=== PATIENT | male | born 1970 | race Caucasian/White ===

== ENCOUNTER 2018-03-14 22:28 | Emergency (ER) | payer OTHER ==
[2018-03-14] MEDS ORDERED: Thiamine HCl 200 MG/2 ML VIAL ONE (22:43)
[2018-03-14] MEDS ORDERED: Ketorolac Tromethamine 30 MG/ML VIAL ONE (22:44)
[2018-03-14 23:06] LABS: #Basophils 0.1 thou/uL (0.0-0.2); #Eosinphils 0.1 thou/uL (0.0-0.7); #Lymphocytes 2.5 thou/uL (1.20-3.40); %Basophils 1.7 % (0.0-1.0); %Eosinophils 1.6 % (0.0-10.0); %Lymphocytes 37.9 % (21.0-51.0); %Monocytes 14.2 % (0.0-10.0); %Neutrophils 44.6 % (42.0-75.0); Hemoglobin 16.4 g/dL (14.0-18.0); Mean Corpuscular HGB CONC 36.8 g/dL (32.0-36.0); Mean Corpuscular Hemoglobin 32.9 pg (27.0-31.0); Mean Corpuscular Volume 89.3 fL (78.0-98.0); Mean Platelet Volume 7.1 fL (7.4-10.4); Platelet Count 159 thou/uL (130-400); RBC Distribution Width 11.5 % (11.5-14.5); Red Blood Cell (RBC) Count 4.97 mill/uL (4.70-6.10); White Blood Cell (WBC) Count 6.7 thou/uL (4.8-10.8)
--- NOTE | 2018-03-14 23:10 | RAD ---
CHEST ONE VIEW: HISTORY: Chest pain. COMPARISON: None. FINDINGS: Normal cardiac silhouette. Pulmonary vessels and hilum are normal. Costophrenic angles are clear. No consolidation or mass. No pneumothorax or osseous abnormalities. IMPRESSION: Limited evaluation due to motion. No acute cardiopulmonary process. POS: [facility]
[2018-03-14 23:15] LABS: ALT (SGPT) 124 U/L (8-55); AST (SGOT) 176 U/L (5-34); Albumin 3.7 g/dL (3.5-5.0); Alcohol 356 mg/dL (Less than 10); Alkaline Phosphatase 42 U/L (40-150); Anion Gap 15 mmol/L (10-20); BUN (Urea Nitrogen) 4 mg/dL (8.9-20.6); Bilirubin, Total 0.4 mg/dL (0.2-1.2); Calc. Creatinine Clearance 0 mL/min (70-130); Calcium 8.6 mg/dL (7.8-10.44); Carbon Dioxide 22 mmol/L (22-29); Chloride 107 mmol/L (98-107); Estimated GFR-MDRD Greater than 90; Globulin 3.8 g/dL (2.4-3.5); Glucose 107 mg/dL (70-105); Lipase 36 U/L (8-78); Potassium 3.8 mmol/L (3.5-5.1); Protein, Total 7.5 g/dL (6.0-8.3); Sodium 140 mmol/L (136-145)
[2018-03-14] MEDS ORDERED: traMADol HCl 50 MG TAB ONE (23:15)
[2018-03-14 23:18] LABS: CKMB 1.4 ng/mL (0-6.6); Troponin I Less than 0.010 ng/mL (< 0.028)
== END 2018-03-14 23:50 | disposition home or self-care (01) ==
LOC: BURERS 22:28
DX: R07.89 Other chest pain (principal); R79.89 Other specified abnormal findings of blood chemistry; F10.129 Alcohol abuse with intoxication, unspecified; F17.220 Nicotine dependence, chewing tobacco, uncomplicated
CPT/HCPCS: 36415; 71045; 80053; 80307; 82553; 83690; 84484; 85025; 85379; 93005; 94760; 96365; 96375; J1885; J3411